=== PATIENT | male | born 1980 | race Caucasian/White ===

== ENCOUNTER 2023-01-06 06:25 | Emergency (ER) | payer SELFPAY ==
[~2023-01-06] VITALS: Ht 182.9 cm; Wt 86.2 kg
[2023-01-06 06:30] VITALS: BP 124/72; PULSE 63; RESP 17; TEMP 97.6; O2SAT 100
--- NOTE | 2023-01-06 06:30 | NUR ---
TO BED AMBULATORY
[2023-01-06] MEDS ORDERED: FAMOTIDINE 20 MG/2 ML VIAL IVP ONE (07:15)
[2023-01-06] MEDS ORDERED: KETOROLAC 30 MG/ML VIAL IVP ONE (07:15)
[2023-01-06] MEDS ORDERED: ONDANSETRON 4 MG/2 ML VIAL IVP ONE (07:15)
[2023-01-06] MEDS ORDERED: NACL 0.9% 1,000 ML IV SCH (07:15)
--- NOTE | 2023-01-06 07:15 | NUR ---
Pt report given to GAGANDEEP BAEZA. Transfer of care at this time.
--- NOTE | 2023-01-06 07:19 | NUR ---
Pt report given to TODD RAY. Transfer of care at this time.
--- NOTE | 2023-01-06 07:30 | NUR ---
REVEIVED PT FROM RN FLORES. REPORT GIVEN BY VINICIUS BAEZA.
[2023-01-06 07:35] VITALS: O2SAT 97
--- NOTE | 2023-01-06 07:45 | NUR ---
PATIENT PRESENTS TO ED WITH ABD EPIGASTRIC PAIN. PT STATES IS SHARP AND RADIATES TO MIDLINE OF DIAPHRAGM PT STATES HES HAD N/V/D FOR TWO DAYS. PTS SKIN IS PINK/WARM/DRY; AAOX4 WITH EVEN AND STEADY GAIT; LUNGS CLEAR BL; HR EVEN AND REGULAR; PT DENIES ANY FEVER, SOB, OR COUGH AT THIS TIME; PT STATES PAIN RADIATES TO CHEST BUT THE PAIN DOES NOT START IN HIS CHEST. PATIENT STATES PAIN OF 9/10 AT THIS TIME; VSS; PATIENT POSITIONED FOR COMFORT; HOB ELEVATED; BEDRAILS UP X2; BED DOWN. ER MD MADE AWARE OF PT STATUS. AWAITING FOR PLAN OF CARE FROM PROVIDER PAIN STARTED AT 4:30 PREVIOUS HX; [place] THREE YEARS AGO.
[2023-01-06 08:12] LABS: BASOPHILS % (AUTO) 0.8 % (0.0-2.0); EOSINOPHILS # (AUTO) 0.1 K/uL (0-0.4); EOSINOPHILS % (AUTO) 1.8 % (0.0-4.0); HEMATOCRIT 40.1 % (36-52); HEMOGLOBIN 14.2 g/dL (12.0-18.0); LYMPHOCYTES # (AUTO) 1.5 K/uL (2.0-11.5); LYMPHOCYTES % (AUTO) 26.4 % (20.5-51.1); MEAN CORPUSCULAR HEMOGLOBIN 29 pg (27-31); MEAN CORPUSCULAR HGB CONC 35 g/dL (33-37); MEAN CORPUSCULAR VOLUME 83.2 fL (80-94); MONOCYTES # (AUTO) 0.5 K/uL (0.8-1.0); MONOCYTES % (AUTO) 9.4 % (1.7-9.3); NEUTROPHILS # (AUTO) 3.5 K/uL (1.8-7.7); NEUTROPHILS % (AUTO) 61.6 % (42.2-75.2); PLATELET COUNT (AUTO) 271 K/uL (140-450); RED BLOOD CELL COUNT(AUTO) 4.82 MIL/uL (4.20-6.10); RED CELL DISTRIBUTION WIDTH 13.7 % (11.6-13.7); WHITE BLOOD COUNT (AUTO) 5.7 K/uL (4.8-10.8)
--- NOTE | 2023-01-06 08:14 | NUR ---
PT HAS BEEN MEDICATED PER PROVIDERS ORDERS. 1 LITER OF FLUIDS INFUSING. PT HAS A 20 G. IV IN LEFT AC. PT HAS BEEN PLACED ON MONITOR. PT HAS BEEN OFFERED BLANKET AND PLAN OF CARE EXPLAINED. W ILL CONTINUE TO MONITOR PT.
[2023-01-06 08:35] LABS: ALBUMIN 3.7 g/dL (3.4-5.0); CARBON DIOXIDE 31.7 mmol/L (21-32); POTASSIUM 3.7 mmol/L (3.5-5.1); TOTAL BILIRUBIN 0.4 mg/dL (0.0-1.0)
[2023-01-06 08:52] LABS: APPEARANCE,URINE CLEAR (CLEAR); BILIRUBIN,URINE NEGATIVE (NEGATIVE); BLOOD, URINE NEGATIVE (NEGATIVE); COLOR,URINE YELLOW (YELLOW); LEUKOCYTE ESTERASE ,URINE NEGATIVE (NEGATIVE); NITRITE, URINE NEGATIVE (NEGATIVE); UGLUCOSE NEGATIVE (NEGATIVE)
--- NOTE | 2023-01-06 09:22 | NUR ---
Pt resting. No signs and symptoms of discomfort.
[2023-01-06] MEDS ORDERED: ONDA-188 PO (09:38)
[2023-01-06] MEDS ORDERED: ACET-8905 PO (09:38)
--- NOTE | 2023-01-06 09:57 | NUR ---
Patient discharged with v/s stable. Written and verbal after care instructions given and explained. Patient verbalized understanding. Ambulatory with steady gait. All questions addressed prior to discharge. Advised to follow up with PMD.
[2023-01-06 09:59] VITALS: BP 112/73; PULSE 69; RESP 12; TEMP 98.3
== END 2023-01-06 09:57 | disposition home or self-care (01) ==
LOC: MED 06:25
DX: K80.20 Calculus of gallbladder without cholecystitis without obstruction (principal); F12.90 Cannabis use, unspecified, uncomplicated; Z79.899 Other long term (current) drug therapy
CPT/HCPCS: 36415; 80053; 81003; 83690; 85025; 96361; 96374; 96375; 99284; J1885; J2405; J3490; J7030